=== PATIENT | female | born 1980 | race Caucasian/White ===

== ENCOUNTER 2016-04-04 13:11 | Emergency (ER) | payer OTHER ==
[2016-04-04] MEDS ORDERED: KETOROLAC 30 MG/ML VIAL (J1885) As Ordered ONE (15:53)
[2016-04-04] MEDS ORDERED: ONDANSETRON 4MG/2ML VIAL (J2405) As Ordered ONE (15:53)
[2016-04-04 16:22] LABS: BASO % 0.4 % (0.0-1.0); EOS # 0.1 K/mm3 (0.0-0.50); EOS % 1.8 % (0.0-3.0); LARGE UNSTAINED CELL # 0.1 K/mm3 (0.0-0.4); LARGE UNSTAINED CELL % 1.7 % (0.0-4.0); LYMPH % 32.8 % (24.0-44.0); MEAN CORPUSCULAR HEMOGLOBIN 27.9 pg (27.0-33.0); MEAN CORPUSCULAR HGB CONC 33.9 g/dl (32.0-36.5); MEAN CORPUSCULAR VOLUME 82.4 fl (80.0-96.0); MONO # 0.4 K/mm3 (0.0-0.8); MONO % 7.6 % (0.0-5.0); NEUTROPHILS # 3.2 K/mm3 (1.8-7.7); NEUTROPHILS % 55.7 % (36.0-66.0); PLATELET COUNT, AUTOMATED 283 k/mm3 (150-450); RED CELL DISTRIBUTION WIDTH 13.1 % (11.5-14.5); WHITE BLOOD COUNT 5.8 K/mm3 (4.0-10.0)
[2016-04-04 16:46] LABS: ALBUMIN 3.4 GM/DL (3.2-5.2); ALKALINE PHOSPHATASE 74 U/L (45-117); ALT/SGPT 16 U/L (12-78); AMYLASE 31 U/L (25-115); ANION GAP 11 MEQ/L (8-16); AST/SGOT 14 U/L (15-37); BILIRUBIN,DIRECT < 0.1 MG/DL (0.0-0.2); BILIRUBIN,TOTAL 0.2 MG/DL (0.2-1.0); BLOOD UREA NITROGEN 8 MG/DL (7-18); CALCIUM LEVEL 8.5 MG/DL (8.5-10.1); CARBON DIOXIDE LEVEL 24 MEQ/L (21-32); CHLORIDE LEVEL 105 MEQ/L (98-107); CREATININE FOR GFR 0.63 MG/DL (0.55-1.02); GLOMERULAR FILTRATION RATE > 60.0 (>60); GLUCOSE, FASTING 86 MG/DL (70-105); POTASSIUM SERUM 3.6 MEQ/L (3.5-5.1); SODIUM LEVEL 140 MEQ/L (136-145); TOTAL PROTEIN 6.8 GM/DL (6.4-8.2)
--- NOTE | 2016-04-04 16:59 | REP ---
Clinical: Right flank pain. Findings: Lung bases clear. Visualized heart and pericardium normal. Renal hypodensities suggest small cysts and 2 mm nephrolith in the left kidney lower pole. Small amount of layering milk of calcium in a left upper pole cyst is also identified. There is no evidence for perinephric stranding or hydroureteronephrosis bilaterally. Liver, spleen, pancreas, gallbladder, and bilateral adrenal glands are normal. The enteric system is without obstruction or acute inflammatory process. Pelvis demonstrates collapsed bladder, bulky myomatous appearance to the uterus and ovary a centimeter left ovarian cyst likely physiologic. No pelvic fluid or ascites. No free air. No adenopathy. Abdominal aorta without aneurysm. Musculoskeletal structures intact. Impression: 1. Kidneys suggest small bilateral cysts as well as 2 mm nonobstructing left renal calculus. 2. Myomatous changes to the uterus and 3 cm left ovarian cyst. 3. Sigmoid diverticula without acute diverticulitis. Signed by Jann Licona MD 04/04/2016 04:51 P
[2016-04-04] MEDS ORDERED: NITROFURANTOIN (MACROBID) 100 MG CAP As Ordered ONE (17:15)
[2016-04-04] MEDS ORDERED: TAMSULOSIN 0.4 MG CAP As Ordered ONE (17:16)
[2016-04-04] MEDS ORDERED: PHENAZOPYRIDINE 100 MG TAB As Ordered ONE (17:16)
--- NOTE | 2016-04-04 17:34 | EDDOCDS ---
Physician Documentation [facility] Name: Lizz Henao Age: 36 yrs Sex: Female : 1980 Arrival Date: 04/04/2016 Time: 13:11 Bed I3 / M3 Private MD: NO PRIMARY PHYSICIAN, . Disposition: 04/04/16 17:19 Discharged to Home/Self Care. Impression: Other ovarian cysts - 3 cm Left ovarian cyst, Calculus of kidney - Nonobstructing 2mm Left calculus, Diverticulosis of large intestine without perforation or abscess without bleeding - Sigmoid, Urinary tract infection, site not specified. - Condition is Stable. - Discharge Instructions: Diverticulosis, Kidney Stones, Ovarian Cyst, Urinary Tract Infection, [id number]. - Prescriptions for Pyridium 200 mg Oral Tablet - take 1 tablet by ORAL route every 8 hours for 3 days; 9 tablet. Macrobid 100 mg Oral Capsule - take 100 milligram by ORAL route every 12 hours for 10 days; 20 capsule. Flomax 0.4 mg Oral Capsule, Sust. Release 24 hr - take 1 capsule by ORAL route once daily 1/2 hour following the same meal each day; 30 capsule. ketorolac 10 mg Oral Tablet - take 1 tablet by ORAL route 3 times per day As needed MDD- 30mg. Up to 5 days total use.; 15 tablet. ZOFRAN ODT 4 mg - dissolve 1 tablet by ORAL route 4 times per day As needed do not chew, do not swallow whole; 10 tablet. - Medication Reconciliation, Local Pharmacy Hours, Referral List Call for Appointment form. - Follow up: [facility] ; When: 1 - 2 days; Reason: Recheck today's complaints, Continuance of care. Follow up: Maria T Clarke; When: 1 - 2 days; Reason: Further diagnostic work-up, Recheck today's complaints, Continuance of care. Follow up: Phill Fatima; When: Call to arrange an appointment; Reason: Further diagnostic work-up, Recheck today's complaints, Continuance of care. Follow up: Bita Rabago; When: Call to arrange an appointment; Reason: Further diagnostic work-up, Recheck today's complaints, Continuance of care. - Problem is new. - Symptoms have improved. Historical: - Allergies: no known allergies; - Home Meds: 1. none - PMHx: none; - PSHx: Appendectomy; ; Laparoscopy; - Social history: Smoking status: Patient states was never smoker of tobacco. No barriers to communication noted, The patient speaks fluent Wallisian, Speaks appropriately for age. - Family history: Not pertinent. - : The pt / caregiver states he / she is not on anticoagulants. Home medication list is obtained from the patient. 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 5 in. (165.10 cm) (R); Pain 10/10; 17:18 BP 124 / 77; Pulse 70; Resp 18; Temp 97.5(O); Pulse Ox 97% on R/A; Pain 8/10; nb2 13:12 Body Mass Index 32.12 (87.54 kg, 165.10 cm) lr2 MDM: 14:57 [facility] Payment Agreement was scanned into [employer] and attached to record. [id number] 15:49 NS 0.9% 1000 ml IV at bolus once ordered. ef1 15:49 Ondansetron 4 mg IVP once ordered. ef1 15:49 ketorolac 30 mg IVP once ordered. ef1 15:49 IV Saline Lock ordered. ef1 15:49 Undress patient appropriately for examination ordered. ef1 15:49 UCG by Nursing ordered. ef1 15:49 Financial registration complete. lg 15:49 Amylase Ordered. EDMS 15:49 Basic Metabolic Profile Ordered. EDMS 15:50 CBC with Diff Ordered. EDMS 15:50 Lipase Ordered. EDMS 15:50 Liver Profile Ordered. EDMS 15:50 Urinalysis Ordered. EDMS 15:50 Urine Culture Ordered. EDMS 15:50 CT ABD & PELVIS: No Contrast Ordered. EDMS 15:51 NOTHING BY MOUTH+DIET ordered. EDMS 17:09 CBC with Diff Reviewed. ef1 17:09 Liver Profile Reviewed. ef1 17:09 Urinalysis Reviewed. ef1 17:09 Amylase Reviewed. ef1 17:09 Basic Metabolic Profile Reviewed. ef1 17:09 Lipase Reviewed. ef1 17:14 Tamsulosin Extended Release 24 hour Capsule 0.4 mg PO once ordered. ef1 17:14 Phenazopyridine 200 mg PO once ordered. ef1 17:14 Nitrofurantoin 100 mg PO once ordered. ef1 Point of Care Testing: Urine : 16:00 hCG Reading: Negative; Control Reading: Positive; dsf Ranges: Administered Medications: 16:17 Drug: NS 0.9% 1000 ml [sodium chloride 0.9 % intravenous solution] Route: IV; Rate: mb9 bolus; Site: right antecubital; 17:31 Follow up: IV Status: Completed infusion; IV Intake: 1000ml ld5 16:17 Drug: Ondansetron 4 mg [ondansetron HCl 2 mg/mL intravenous solution (2 mL)] Route: mb9 IVP; Site: right antecubital; 17:31 Follow up: Response: Nausea is decreased ld5 16:17 Drug: ketorolac 30 mg [ketorolac 30 mg/mL (1 mL) injection solution (1 mL)] Route: IVP; mb9 Site: right antecubital; 17:31 Follow up: Response: Pain is decreased ld5 17:30 Drug: Nitrofurantoin 100 mg {Note: 1 - 100 mg capsule.} Route: PO; ld5 17:31 Drug: Tamsulosin 0.4 mg [tamsulosin 0.4 mg capsule (1 caps)] Route: PO; ld5 17:31 Drug: Phenazopyridine 200 mg [phenazopyridine 100 mg tablet (2 tabs)] Route: PO; ld5 Signatures: Dispatcher [employer] Thea Burns RN RN dls Ganter, LoriLee, Reg Reg lg Joan Godfrey, PA-Dara PA-C ef1 Omaira Gallegos RN RN ld5 Berenice Gaston RN RN dsf Marlen Bell, Reg Reg ks16 Buddy Thorne RN mb9 The chart was reviewed and I authenticate all verbal orders and agree with the evaluation and treatment provided.Attachments: 14:57 [facility] Payment Agreement [email or web address] MTDD
--- NOTE | 2016-04-04 17:34 | EDDOCDS ---
Nurse's Notes [facility] Name: Lizz Henao Age: 36 yrs Sex: Female : 1980 Arrival Date: 04/04/2016 Time: 13:11 Bed I3 / M3 Private MD: NO PRIMARY PHYSICIAN, . Diagnosis: Other ovarian cysts-3 cm Left ovarian cyst;Calculus of kidney-Nonobstructing 2mm Left calculus;Diverticulosis of large intestine without perforation or abscess without bleeding-Sigmoid;Urinary tract infection, site not specified Presentation: 04/04 13:14 Presenting complaint: Patient states: right lower back pain radiating down right leg dsf and right abdomen. pt also reports n/v and a cough. pt states she was seen at [facility] for same thing. pt was diagnosed with right renal cyst and cyst on right ovary. pt states it is not getting any better. pt was prescribed hydrocodone and it just made her sick to her stomach. Acute neurological deficits are not present. Mechanism of Injury: No Mechanism of Injury. Adult Sepsis Screening: The patient does not have new or worsening altered mentation. Patient's respiratory rate is less than 22. Systolic blood pressure is greater than 100. Patient has a qSOFA score of 0- Negative Sepsis Screen. Suicide/Homicide risk assessment- the patient denies having any suicidal and/or homicidal ideations and does not present with any other emotional, behavioral or mental health complaints. 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 Transition of care: patient was not received from another setting of care. 13:14 Acuity: PIERRE Level 3 dsf 13:14 Method Of Arrival: Walkin/Carried/Asstd dsf Triage Assessment: 13:16 General: Appears uncomfortable. dsf 13:16 Pain: Location: right lower back Pain currently is 10 out of 10 on a pain scale. Pain dsf radiates to right leg and right abdomen Quality of pain is described as sharp. Pt Declines HIV testing. Musculoskeletal: Reports pain in right low back. 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 none - PMHx: none; - PSHx: Appendectomy; ; Laparoscopy; - Social history: Smoking status: Patient states was never smoker of tobacco. No barriers to communication noted, The patient speaks fluent Frisian, Speaks appropriately for age. - Family history: Not pertinent. - : The pt / caregiver states he / she is not on anticoagulants. Home medication list is obtained from the patient. 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 Screenin:21 Screening information is obtained from the patient. Fall risk: No risks identified. dls Assistance ADL's: requires no assistance with activities of daily living. Abuse/DV Screen: The patient / caregiver reports he/she is: not in a situation that causes fear, pain or injury. Nutritional screening: No deficits noted. Advance Directives: Currently, there is no health care proxy. There is no active DNR order. There is no living will. There is no Power of Poultry Dresser. home support is adequate. Assessment: 16:20 General: Appears uncomfortable, unkempt, well nourished, well groomed, Behavior is dls cooperative. Neurological: No deficits noted. EENT: No deficits noted. Cardiovascular: No deficits noted. Respiratory: No deficits noted. GI: Abdomen is flat, non- distended Bowel sounds present X 4 quads. Abd is soft X 4 quads Reports. : No deficits noted. Derm: No deficits noted. Musculoskeletal: No deficits noted. 17:31 General: Appears in no apparent distress, Behavior is cooperative. Pain: Pain currently ld5 is 3 out of 10 on a pain scale. Neurological: Level of Consciousness is awake, alert. Respiratory: Airway is patent Respiratory effort is even, unlabored. GI: Denies nausea, vomiting. Vital Signs: 13:12 BP 102 / 77; Pulse 101; Resp 16; Temp 97.7(T); Pulse Ox 98% on R/A; Weight 87.54 kg lr2 (R); Height 5 ft. 5 in. (165.10 cm) (R); Pain 10/10; 17:18 BP 124 / 77; Pulse 70; Resp 18; Temp 97.5(O); Pulse Ox 97% on R/A; Pain 8/10; nb2 13:12 Body Mass Index 32.12 (87.54 kg, 165.10 cm) lr2 Vitals: 13:14 Log In Time: April 04, 2016 at 13:11. lr2 ED Course: 13:12 Patient visited by Omaira Breaux. lr2 13:12 Patient moved to Waiting lr2 13:13 NO PRIMARY PHYSICIAN, . is Private Physician. lr2 13:13 Patient moved to Pre RCE lr2 13:15 Triage Initiated dsf 14:24 Patient moved to Triage 3 ct3 14:57 [facility] Payment Agreement was scanned into [employer] and attached to record. ks16 15:40 Joan Godfrey PA-C is PHCP. ef1 15:41 Sherry Leavitt MD is Attending Physician. ef1 15:41 Patient visited by Joan Godfrey PA-C. ef1 15:50 Patient moved to I3 / M3 srm 15:59 Urinalysis Sent. dsf 16:00 Urine Culture Sent. dsf 16:11 Patient visited by Joan Godfrey PA-C. ef1 16:16 Amylase Sent. mb9 16:16 Basic Metabolic Profile Sent. mb9 16:16 CBC with Diff Sent. mb9 16:16 Lipase Sent. mb9 16:16 Liver Profile Sent. mb9 16:21 The patient / caregiver is instructed regarding the plan of care and ED course. dls Accompanied by Significant Other, Placed in gown. Bed in low position. Call light in reach. 16:21 Inserted peripheral IV: 20gauge IV in right antecubital area and blood collected. dls Patient tolerated the procedure well. 16:42 Patient visited by Joan Godfrey PA-C. ef1 17:09 Patient visited by Joan Godfrey PA-C. ef1 17:18 Patient visited by Yasmeen Millard. nb2 17:19 [facility] is Referral Physician. ef1 17:19 Maria T Clarke MD is Referral Physician. ef1 17:19 Phill Fatima MD is Referral Physician. ef1 17:19 Bita Rabago MD is Referral Physician. ef1 17:31 CT ABD & PELVIS: No Contrast Returned. EDMS 17:31 Discontinued lock intact, bleeding controlled, pressure dressing applied, No ld5 redness/swelling at site. No procedures done that require assistance. 17:33 Patient visited by Omaira Gallegos RN. ld5 Administered Medications: 16:17 Drug: NS 0.9% 1000 ml [sodium chloride 0.9 % intravenous solution] Route: IV; Rate: mb9 bolus; Site: right antecubital; 17:31 Follow up: IV Status: Completed infusion; IV Intake: 1000ml ld5 16:17 Drug: Ondansetron 4 mg [ondansetron HCl 2 mg/mL intravenous solution (2 mL)] Route: mb9 IVP; Site: right antecubital; 17:31 Follow up: Response: Nausea is decreased ld5 16:17 Drug: ketorolac 30 mg [ketorolac 30 mg/mL (1 mL) injection solution (1 mL)] Route: IVP; mb9 Site: right antecubital; 17:31 Follow up: Response: Pain is decreased ld5 17:30 Drug: Nitrofurantoin 100 mg {Note: 1 - 100 mg capsule.} Route: PO; ld5 17:31 Drug: Tamsulosin 0.4 mg [tamsulosin 0.4 mg capsule (1 caps)] Route: PO; ld5 17:31 Drug: Phenazopyridine 200 mg [phenazopyridine 100 mg tablet (2 tabs)] Route: PO; ld5 Point of Care Testing: Urine : 16:00 hCG Reading: Negative; Control Reading: Positive; dsf Ranges: Intake: 17:31 IV: 1000.00ml; Total: 1000.00ml. ld5 Order Results: Lab Order: Amylase; SPEC'M 04/04/16 16:14 Test: AMYLASE; Value: 31; Range: 25-115; Units: U/L; Status: F Lab Order: Basic Metabolic Profile; SPEC'M 04/04/16 16:14 Test: GLUCOSE, FASTING; Value: 86; Range: 70-105; Units: MG/DL; Status: F Test: BLOOD UREA NITROGEN; Value: 8; Range: 7-18; Units: MG/DL; Status: F Test: CREATININE FOR GFR; Value: 0.63; Range: 0.55-1.02; Units: MG/DL; Status: F Test: GLOMERULAR FILTRATION RATE; Value: > 60.0; Range: >60; Status: F Test: SODIUM LEVEL; Value: 140; Range: 136-145; Units: MEQ/L; Status: F Test: POTASSIUM SERUM; Value: 3.6; Range: 3.5-5.1; Units: MEQ/L; Status: F Test: CHLORIDE LEVEL; Value: 105; Range: 98-107; Units: MEQ/L; Status: F Test: CARBON DIOXIDE LEVEL; Value: 24; Range: 21-32; Units: MEQ/L; Status: F Test: ANION GAP; Value: 11; Range: 8-16; Units: MEQ/L; Status: F Test: CALCIUM LEVEL; Value: 8.5; Range: 8.5-10.1; Units: MG/DL; Status: F Test Note: ; Units are mL/min/1.73 m2 Chronic Kidney Disease Staging per NKF: Stage I & II GFR >=60 Normal to Mildly Decreased Stage III GFR 30-59 Moderately Decreased Stage IV GFR 15-29 Severely Decreased Stage V GFR <15 Very Little GFR Left ESRD GFR <15 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 Lab Order: CBC with Diff; SPEC'M 04/04/16 16:14 Test: WHITE BLOOD COUNT; Value: 5.8; Range: 4.0-10.0; Units: K/mm3; Status: F Test: RED BLOOD COUNT; Value: 5.07; Range: 4.00-5.40; Units: M/mm3; Status: F Test: HEMOGLOBIN; Value: 14.2; Range: 12.0-16.0; Units: g/dl; Status: F Test: HEMATOCRIT; Value: 41.8; Range: 36.0-47.0; Units: %; Status: F Test: MEAN CORPUSCULAR VOLUME; Value: 82.4; Range: 80.0-96.0; Units: fl; Status: F Test: MEAN CORPUSCULAR HEMOGLOBIN; Value: 27.9; Range: 27.0-33.0; Units: pg; Status: F Test: MEAN CORPUSCULAR HGB CONC; Value: 33.9; Range: 32.0-36.5; Units: g/dl; Status: F Test: RED CELL DISTRIBUTION WIDTH; Value: 13.1; Range: 11.5-14.5; Units: %; Status: F Test: PLATELET COUNT, AUTOMATED; Value: 283; Range: 150-450; Units: k/mm3; Status: F Test: NEUTROPHILS %; Value: 55.7; Range: 36.0-66.0; Units: %; Status: F Test: LYMPH %; Value: 32.8; Range: 24.0-44.0; Units: %; Status: F Test: MONO %; Value: 7.6; Range: 0.0-5.0; Abnormal: Above high normal; Units: %; Status: F Test: EOS %; Value: 1.8; Range: 0.0-3.0; Units: %; Status: F Test: BASO %; Value: 0.4; Range: 0.0-1.0; Units: %; Status: F Test: LARGE UNSTAINED CELL %; Value: 1.7; Range: 0.0-4.0; Units: %; Status: F Test: NEUTROPHILS #; Value: 3.2; Range: 1.8-7.7; Units: K/mm3; Status: F Test: LYMPH #; Value: 2.0; Range: 1.5-4.5; Units: K/mm3; Status: F Test: MONO #; Value: 0.4; Range: 0.0-0.8; Units: K/mm3; Status: F Test: EOS #; Value: 0.1; Range: 0.0-0.50; Units: K/mm3; Status: F Test: BASO #; Value: 0.0; Range: 0.0-0.2; Units: K/mm3; Status: F Test: LARGE UNSTAINED CELL #; Value: 0.1; Range: 0.0-0.4; Units: K/mm3; Status: F Lab Order: Lipase; [facility]' 04/04/16 16:14 Test: LIPASE; Value: 93; Range: 73-393; Units: U/L; Status: F Lab Order: Liver Profile; [facility]' 04/04/16 16:14 Test: AST/SGOT; Value: 14; Range: 15-37; Abnormal: Below low normal; Units: U/L; Status: F Test: ALT/SGPT; Value: 16; Range: 12-78; Units: U/L; Status: F Test: ALKALINE PHOSPHATASE; Value: 74; Range: 45-117; Units: U/L; Status: F Test: BILIRUBIN,TOTAL; Value: 0.2; Range: 0.2-1.0; Units: MG/DL; Status: F Test: BILIRUBIN,DIRECT; Value: < 0.1; Range: 0.0-0.2; Units: MG/DL; Status: F Test: TOTAL PROTEIN; Value: 6.8; Range: 6.4-8.2; Units: GM/DL; Status: F Test: ALBUMIN; Value: 3.4; Range: 3.2-5.2; Units: GM/DL; Status: F Test: ALBUMIN/GLOBULIN RATIO; Value: 1.00; Range: 1.00-1.93; Status: F Lab Order: Urinalysis; SPEC'M 04/04/16 15:53 Test: APPEARANCE, URINE; Value: CLOUDY; Range: CLEAR; Abnormal: Above high normal; Status: F Test: COLOR, URINE; Value: RICKY; Range: YELLOW; Status: F Test: PH,URINE; Value: 5.0; Range: 5.0-9.0; Units: UNITS; Status: F Test: SPECIFIC GRAVITY URINE AUTO; Value: 1.024; Range: 1.002-1.035; Status: F Test: PROTEIN, URINE AUTO; Value: 1+; Range: NEGATIVE; Abnormal: Above high normal; Units: mg/dL; Status: F Test: GLUCOSE, URINE (UA) AUTO; Value: NEGATIVE; Range: NEGATIVE; Units: mg/dL; Status: F Test: KETONE, URINE AUTO; Value: 2+; Range: NEGATIVE; Abnormal: Above high normal; Units: mg/dL; Status: F Test: UROBILINOGEN, URINE AUTO; Value: 0.2; Range: 0.0-2.0; Units: mg/dL; Status: F Test: BILIRUBIN, URINE AUTO; Value: NEGATIVE; Range: NEGATIVE; Status: F Test: NITRITE, URINE AUTO; Value: NEGATIVE; Range: NEGATIVE; Status: F Test: LEUKOCYTE ESTERASE, URINE AUTO; Value: 2+; Range: NEGATIVE; Abnormal: Above high normal; Status: F Test: BLOOD, URINE BLOOD; Value: NEGATIVE; Range: NEGATIVE; Status: F Test: WBC, URINE AUTO; Value: 39; Range: 0-3; Abnormal: Above high normal; Units: /HPF; Status: F Test: RBC, URINE AUTO; Value: 6; Range: 0-3; Abnormal: Above high normal; Units: /HPF; Status: F Test: BACTERIA, URINE AUTO; Value: 1+; Range: NEGATIVE; Abnormal: Above high normal; Status: F Test: SQUAMOUS EPITHELIAL CELL UR AU; Value: 17; Range: 0-6; Units: /HPF; Status: F Test: MUCUS, URINE; Value: SMALL; Range: NEGATIVE; Status: F Test: HYALINE CAST, URINE AUTO; Value: 0; Range: 0-1; Units: /LPF; Status: F Radiology Order: CT ABD & PELVIS: No Contrast Test: CT ABD & PELVIS: No Contrast REASON FOR EXAMINATION: Renal colic; Clinical: Right flank pain.; ; Findings:; Lung bases clear. Visualized heart and pericardium normal.; ; Renal hypodensities suggest small cysts and 2 mm nephrolith in the left kidney; lower pole. Small amount of layering milk of calcium in a left upper pole cyst; is also identified. There is no evidence for perinephric stranding or; hydroureteronephrosis bilaterally.; ; Liver, spleen, pancreas, gallbladder, and bilateral adrenal glands are normal.; The enteric system is without obstruction or acute inflammatory process.; ; Pelvis demonstrates collapsed bladder, bulky myomatous appearance to the uterus; and ovary a centimeter left ovarian cyst likely physiologic. No pelvic fluid or; ascites. No free air. No adenopathy. Abdominal aorta without aneurysm.; Musculoskeletal structures intact.; ; Impression:; 1. Kidneys suggest small bilateral cysts as well as 2 mm nonobstructing left; renal calculus.; 2. Myomatous changes to the uterus and 3 cm left ovarian cyst.; 3. Sigmoid diverticula without acute diverticulitis.; ; ; Signed by; Jann Licona MD 04/04/2016 04:51 P; Outcome: 17:19 Discharge ordered by Provider. ef1 17:31 Discharge Assessment: Patient awake, alert and oriented x 3. No cognitive and/or ld5 functional deficits noted. Patient verbalized understanding of disposition instructions. patient administered narcotics -. 17:32 The following High Risk Discharge criteria are identified: None. Discharged to home ld5 ambulatory, with significant other. Condition: stable. Discharge instructions given to patient, significant other, Instructed on discharge instructions, follow up and referral plans. medication usage, Demonstrated understanding of instructions, medications, Pt was receptive of discharge instructions/ teaching. Prescriptions given X 5. CT Study completed. Property :Personal belongings accompany Pt. 17:33 Patient left the ED. ld5 Signatures: Dispatcher [facility] EDAZ Helena Galarza RN RN donny Pruett Thea, RN RN dls Epifanio, Joan, PA-C PA-C ef1 Omaira Gallegos,TIFFANY RN ld5 Mercedes, Ariela, REGIONAL MANAGER REGIONAL MANAGER ct3 Berenice Gaston RN RN dsBuddy Vo RN RN mb9 Marlen Bell, Reg Reg ks16 Yasmeen Millard nb2 Omaira Breaux lr2 Corrections: (The following items were deleted from the chart) 13:17 13:14 Presenting complaint: Patient states: right lower back pain radiating down right dsf leg and right abdomen. pt also reports n/v and a cough dsf MTDD
--- NOTE | 2016-04-06 18:33 | EDDOCDS ---
Physician Documentation [facility] Name: Lizz Henao Age: 36 yrs Sex: Female : 1980 Arrival Date: 04/04/2016 Time: 13:11 Bed I3 / M3 Private MD: NO PRIMARY PHYSICIAN, . Disposition: 04/04/16 17:19 Discharged to Home/Self Care. Impression: Other ovarian cysts - 3 cm Left ovarian cyst, Calculus of kidney - Nonobstructing 2mm Left calculus, Diverticulosis of large intestine without perforation or abscess without bleeding - Sigmoid, Urinary tract infection, site not specified. - Condition is Stable. - Discharge Instructions: Diverticulosis, Kidney Stones, Ovarian Cyst, Urinary Tract Infection, [id number]. - Prescriptions for Pyridium 200 mg Oral Tablet - take 1 tablet by ORAL route every 8 hours for 3 days; 9 tablet. Macrobid 100 mg Oral Capsule - take 100 milligram by ORAL route every 12 hours for 10 days; 20 capsule. Flomax 0.4 mg Oral Capsule, Sust. Release 24 hr - take 1 capsule by ORAL route once daily 1/2 hour following the same meal each day; 30 capsule. ketorolac 10 mg Oral Tablet - take 1 tablet by ORAL route 3 times per day As needed MDD- 30mg. Up to 5 days total use.; 15 tablet. ZOFRAN ODT 4 mg - dissolve 1 tablet by ORAL route 4 times per day As needed do not chew, do not swallow whole; 10 tablet. - Medication Reconciliation, Local Pharmacy Hours, Referral List Call for Appointment form. - Follow up: [facility] ; When: 1 - 2 days; Reason: Recheck today's complaints, Continuance of care. Follow up: Maria T Clarke; When: 1 - 2 days; Reason: Further diagnostic work-up, Recheck today's complaints, Continuance of care. Follow up: Phill Fatima; When: Call to arrange an appointment; Reason: Further diagnostic work-up, Recheck today's complaints, Continuance of care. Follow up: Bita Rabago; When: Call to arrange an appointment; Reason: Further diagnostic work-up, Recheck today's complaints, Continuance of care. - Problem is new. - Symptoms have improved. Historical: - Allergies: no known allergies; - Home Meds: 1. none - PMHx: none; - PSHx: Appendectomy; ; Laparoscopy; - Social history: Smoking status: Patient states was never smoker of tobacco. No barriers to communication noted, The patient speaks fluent Kiswahili, Speaks appropriately for age. - Family history: Not pertinent. - : The pt / caregiver states he / she is not on anticoagulants. Home medication list is obtained from the patient. 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 5 in. (165.10 cm) (R); Pain 10/10; 17:18 BP 124 / 77; Pulse 70; Resp 18; Temp 97.5(O); Pulse Ox 97% on R/A; Pain 8/10; nb2 13:12 Body Mass Index 32.12 (87.54 kg, 165.10 cm) lr2 MDM: 14:57 [facility] Payment Agreement was scanned into [employer] and attached to record. [email or web address] 15:49 NS 0.9% 1000 ml IV at bolus once ordered. ef1 15:49 Ondansetron 4 mg IVP once ordered. ef1 15:49 ketorolac 30 mg IVP once ordered. ef1 15:49 IV Saline Lock ordered. ef1 15:49 Undress patient appropriately for examination ordered. ef1 15:49 UCG by Nursing ordered. ef1 15:49 Financial registration complete. lg 15:49 Amylase Ordered. EDMS 15:49 Basic Metabolic Profile Ordered. EDMS 15:50 CBC with Diff Ordered. EDMS 15:50 Lipase Ordered. EDMS 15:50 Liver Profile Ordered. EDMS 15:50 Urinalysis Ordered. EDMS 15:50 Urine Culture Ordered. EDMS 15:50 CT ABD & PELVIS: No Contrast Ordered. EDMS 15:51 NOTHING BY MOUTH+DIET ordered. EDMS 17:09 CBC with Diff Reviewed. ef1 17:09 Liver Profile Reviewed. ef1 17:09 Urinalysis Reviewed. ef1 17:09 Amylase Reviewed. ef1 17:09 Basic Metabolic Profile Reviewed. ef1 17:09 Lipase Reviewed. ef1 17:14 Tamsulosin Extended Release 24 hour Capsule 0.4 mg PO once ordered. ef1 17:14 Phenazopyridine 200 mg PO once ordered. ef1 17:14 Nitrofurantoin 100 mg PO once ordered. ef1 20:28 T-Sheet-- Draft Copy was scanned into [employer] and attached to record. klr 04/06 10:17 Disposition: radiology report faxed to Belinda and Dr. Rabago. sd1 11:26 Radiology Report was scanned into [employer] and attached to record. Point of Care Testing: Urine : 04/04 16:00 hCG Reading: Negative; Control Reading: Positive; dsf Ranges: Administered Medications: 16:17 Drug: NS 0.9% 1000 ml [sodium chloride 0.9 % intravenous solution] Route: IV; Rate: mb9 bolus; Site: right antecubital; 17:31 Follow up: IV Status: Completed infusion; IV Intake: 1000ml ld5 16:17 Drug: Ondansetron 4 mg [ondansetron HCl 2 mg/mL intravenous solution (2 mL)] Route: mb9 IVP; Site: right antecubital; 17:31 Follow up: Response: Nausea is decreased ld5 16:17 Drug: ketorolac 30 mg [ketorolac 30 mg/mL (1 mL) injection solution (1 mL)] Route: IVP; mb9 Site: right antecubital; 17:31 Follow up: Response: Pain is decreased ld5 17:30 Drug: Nitrofurantoin 100 mg {Note: 1 - 100 mg capsule.} Route: PO; ld5 17:31 Drug: Tamsulosin 0.4 mg [tamsulosin 0.4 mg capsule (1 caps)] Route: PO; ld5 17:31 Drug: Phenazopyridine 200 mg [phenazopyridine 100 mg tablet (2 tabs)] Route: PO; ld5 Signatures: Dispatcher [employer] EDShannon Cortez MD MD sd1 Thea Pruett RN RN Carey Mancuso, Reg Reg lg Joan Godfrey, PA-C PA-C ef1 Omaira Gallegos RN RN ld5 Berenice Gaston RN RN dsf Marlen Bell, Reg Reg ksRosalinda Peres Michael RN mb9 The chart was reviewed and I authenticate all verbal orders and agree with the evaluation and treatment provided.Attachments: 14:57 [facility] Payment Agreement [email or web address] 20:28 T-Sheet-- Draft Copy purvi Chart Complete MTDD
--- NOTE | 2016-04-06 18:33 | EDDOCDS ---
Physician Documentation [facility] Name: Lizz Henao Age: 36 yrs Sex: Female : 1980 Arrival Date: 04/04/2016 Time: 13:11 Bed I3 / M3 Private MD: NO PRIMARY PHYSICIAN, . Disposition: 04/04/16 17:19 Discharged to Home/Self Care. Impression: Other ovarian cysts - 3 cm Left ovarian cyst, Calculus of kidney - Nonobstructing 2mm Left calculus, Diverticulosis of large intestine without perforation or abscess without bleeding - Sigmoid, Urinary tract infection, site not specified. - Condition is Stable. - Discharge Instructions: Diverticulosis, Kidney Stones, Ovarian Cyst, Urinary Tract Infection, [id number]. - Prescriptions for Pyridium 200 mg Oral Tablet - take 1 tablet by ORAL route every 8 hours for 3 days; 9 tablet. Macrobid 100 mg Oral Capsule - take 100 milligram by ORAL route every 12 hours for 10 days; 20 capsule. Flomax 0.4 mg Oral Capsule, Sust. Release 24 hr - take 1 capsule by ORAL route once daily 1/2 hour following the same meal each day; 30 capsule. ketorolac 10 mg Oral Tablet - take 1 tablet by ORAL route 3 times per day As needed MDD- 30mg. Up to 5 days total use.; 15 tablet. ZOFRAN ODT 4 mg - dissolve 1 tablet by ORAL route 4 times per day As needed do not chew, do not swallow whole; 10 tablet. - Medication Reconciliation, Local Pharmacy Hours, Referral List Call for Appointment form. - Follow up: [facility] ; When: 1 - 2 days; Reason: Recheck today's complaints, Continuance of care. Follow up: Maria T Clarke; When: 1 - 2 days; Reason: Further diagnostic work-up, Recheck today's complaints, Continuance of care. Follow up: Phill Fatima; When: Call to arrange an appointment; Reason: Further diagnostic work-up, Recheck today's complaints, Continuance of care. Follow up: Bita Rabago; When: Call to arrange an appointment; Reason: Further diagnostic work-up, Recheck today's complaints, Continuance of care. - Problem is new. - Symptoms have improved. Historical: - Allergies: no known allergies; - Home Meds: 1. none - PMHx: none; - PSHx: Appendectomy; ; Laparoscopy; - Social history: Smoking status: Patient states was never smoker of tobacco. No barriers to communication noted, The patient speaks fluent Chinese, Speaks appropriately for age. - Family history: Not pertinent. - : The pt / caregiver states he / she is not on anticoagulants. Home medication list is obtained from the patient. 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 5 in. (165.10 cm) (R); Pain 10/10; 17:18 BP 124 / 77; Pulse 70; Resp 18; Temp 97.5(O); Pulse Ox 97% on R/A; Pain 8/10; nb2 13:12 Body Mass Index 32.12 (87.54 kg, 165.10 cm) lr2 MDM: 14:57 [facility] Payment Agreement was scanned into [employer] and attached to record. [email or web address] 15:49 NS 0.9% 1000 ml IV at bolus once ordered. ef1 15:49 Ondansetron 4 mg IVP once ordered. ef1 15:49 ketorolac 30 mg IVP once ordered. ef1 15:49 IV Saline Lock ordered. ef1 15:49 Undress patient appropriately for examination ordered. ef1 15:49 UCG by Nursing ordered. ef1 15:49 Financial registration complete. lg 15:49 Amylase Ordered. EDMS 15:49 Basic Metabolic Profile Ordered. EDMS 15:50 CBC with Diff Ordered. EDMS 15:50 Lipase Ordered. EDMS 15:50 Liver Profile Ordered. EDMS 15:50 Urinalysis Ordered. EDMS 15:50 Urine Culture Ordered. EDMS 15:50 CT ABD & PELVIS: No Contrast Ordered. EDMS 15:51 NOTHING BY MOUTH+DIET ordered. EDMS 17:09 CBC with Diff Reviewed. ef1 17:09 Liver Profile Reviewed. ef1 17:09 Urinalysis Reviewed. ef1 17:09 Amylase Reviewed. ef1 17:09 Basic Metabolic Profile Reviewed. ef1 17:09 Lipase Reviewed. ef1 17:14 Tamsulosin Extended Release 24 hour Capsule 0.4 mg PO once ordered. ef1 17:14 Phenazopyridine 200 mg PO once ordered. ef1 17:14 Nitrofurantoin 100 mg PO once ordered. ef1 20:28 T-Sheet-- Draft Copy was scanned into [employer] and attached to record. klr 04/06 10:17 Disposition: radiology report faxed to Belinda and Dr. Rabago. sd1 11:26 Radiology Report was scanned into [employer] and attached to record. Point of Care Testing: Urine : 04/04 16:00 hCG Reading: Negative; Control Reading: Positive; dsf Ranges: Administered Medications: 16:17 Drug: NS 0.9% 1000 ml [sodium chloride 0.9 % intravenous solution] Route: IV; Rate: mb9 bolus; Site: right antecubital; 17:31 Follow up: IV Status: Completed infusion; IV Intake: 1000ml ld5 16:17 Drug: Ondansetron 4 mg [ondansetron HCl 2 mg/mL intravenous solution (2 mL)] Route: mb9 IVP; Site: right antecubital; 17:31 Follow up: Response: Nausea is decreased ld5 16:17 Drug: ketorolac 30 mg [ketorolac 30 mg/mL (1 mL) injection solution (1 mL)] Route: IVP; mb9 Site: right antecubital; 17:31 Follow up: Response: Pain is decreased ld5 17:30 Drug: Nitrofurantoin 100 mg {Note: 1 - 100 mg capsule.} Route: PO; ld5 17:31 Drug: Tamsulosin 0.4 mg [tamsulosin 0.4 mg capsule (1 caps)] Route: PO; ld5 17:31 Drug: Phenazopyridine 200 mg [phenazopyridine 100 mg tablet (2 tabs)] Route: PO; ld5 Signatures: Dispatcher [employer] EDShannon Cortez MD MD sd1 Thea Pruett RN RN Carey Mancuso, Reg Reg lg Joan Godfrey, PA-C PA-C ef1 Omaira Gallegos RN RN ld5 Berenice Gaston RN RN dsf Marlen Bell, Reg Reg ksRosalinda Peres Michael RN mb9 The chart was reviewed and I authenticate all verbal orders and agree with the evaluation and treatment provided.Attachments: 14:57 [facility] Payment Agreement [email or web address] 20:28 T-Sheet-- Draft Copy purvi Chart Complete MTDD
--- NOTE | 2016-04-06 18:33 | EDDOCDS ---
Nurse's Notes [facility] Name: Lizz Henao Age: 36 yrs Sex: Female : 1980 Arrival Date: 04/04/2016 Time: 13:11 Bed I3 / M3 Private MD: NO PRIMARY PHYSICIAN, . Diagnosis: Other ovarian cysts-3 cm Left ovarian cyst;Calculus of kidney-Nonobstructing 2mm Left calculus;Diverticulosis of large intestine without perforation or abscess without bleeding-Sigmoid;Urinary tract infection, site not specified Presentation: 04/04 13:14 Presenting complaint: Patient states: right lower back pain radiating down right leg dsf and right abdomen. pt also reports n/v and a cough. pt states she was seen at [facility] for same thing. pt was diagnosed with right renal cyst and cyst on right ovary. pt states it is not getting any better. pt was prescribed hydrocodone and it just made her sick to her stomach. Acute neurological deficits are not present. Mechanism of Injury: No Mechanism of Injury. Adult Sepsis Screening: The patient does not have new or worsening altered mentation. Patient's respiratory rate is less than 22. Systolic blood pressure is greater than 100. Patient has a qSOFA score of 0- Negative Sepsis Screen. Suicide/Homicide risk assessment- the patient denies having any suicidal and/or homicidal ideations and does not present with any other emotional, behavioral or mental health complaints. 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 Transition of care: patient was not received from another setting of care. 13:14 Acuity: PIERRE Level 3 dsf 13:14 Method Of Arrival: Walkin/Carried/Asstd dsf Triage Assessment: 13:16 General: Appears uncomfortable. dsf 13:16 Pain: Location: right lower back Pain currently is 10 out of 10 on a pain scale. Pain dsf radiates to right leg and right abdomen Quality of pain is described as sharp. Pt Declines HIV testing. Musculoskeletal: Reports pain in right low back. 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 none - PMHx: none; - PSHx: Appendectomy; ; Laparoscopy; - Social history: Smoking status: Patient states was never smoker of tobacco. No barriers to communication noted, The patient speaks fluent Lithuanian, Speaks appropriately for age. - Family history: Not pertinent. - : The pt / caregiver states he / she is not on anticoagulants. Home medication list is obtained from the patient. 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 Screenin:21 Screening information is obtained from the patient. Fall risk: No risks identified. dls Assistance ADL's: requires no assistance with activities of daily living. Abuse/DV Screen: The patient / caregiver reports he/she is: not in a situation that causes fear, pain or injury. Nutritional screening: No deficits noted. Advance Directives: Currently, there is no health care proxy. There is no active DNR order. There is no living will. There is no Power of Baseball Club Manager. home support is adequate. Assessment: 16:20 General: Appears uncomfortable, unkempt, well nourished, well groomed, Behavior is dls cooperative. Neurological: No deficits noted. EENT: No deficits noted. Cardiovascular: No deficits noted. Respiratory: No deficits noted. GI: Abdomen is flat, non- distended Bowel sounds present X 4 quads. Abd is soft X 4 quads Reports. : No deficits noted. Derm: No deficits noted. Musculoskeletal: No deficits noted. 17:31 General: Appears in no apparent distress, Behavior is cooperative. Pain: Pain currently ld5 is 3 out of 10 on a pain scale. Neurological: Level of Consciousness is awake, alert. Respiratory: Airway is patent Respiratory effort is even, unlabored. GI: Denies nausea, vomiting. Vital Signs: 13:12 BP 102 / 77; Pulse 101; Resp 16; Temp 97.7(T); Pulse Ox 98% on R/A; Weight 87.54 kg lr2 (R); Height 5 ft. 5 in. (165.10 cm) (R); Pain 10/10; 17:18 BP 124 / 77; Pulse 70; Resp 18; Temp 97.5(O); Pulse Ox 97% on R/A; Pain 8/10; nb2 13:12 Body Mass Index 32.12 (87.54 kg, 165.10 cm) lr2 Vitals: 13:14 Log In Time: April 04, 2016 at 13:11. lr2 ED Course: 13:12 Patient visited by Omaira Breaux. lr2 13:12 Patient moved to Waiting lr2 13:13 NO PRIMARY PHYSICIAN, . is Private Physician. lr2 13:13 Patient moved to Pre RCE lr2 13:15 Triage Initiated dsf 14:24 Patient moved to Triage 3 ct3 14:57 COUNT INCLUDES THE [facility] Payment Agreement was scanned into [employer] and attached to record. ks16 15:40 Joan Godfrey PA-C is PHCP. ef1 15:41 Sherry Leavitt MD is Attending Physician. ef1 15:41 Patient visited by Joan Godfrey PA-C. ef1 15:50 Patient moved to I3 / M3 srm 15:59 Urinalysis Sent. dsf 16:00 Urine Culture Sent. dsf 16:11 Patient visited by Joan Godfrey PA-C. ef1 16:16 Amylase Sent. mb9 16:16 Basic Metabolic Profile Sent. mb9 16:16 CBC with Diff Sent. mb9 16:16 Lipase Sent. mb9 16:16 Liver Profile Sent. mb9 16:21 The patient / caregiver is instructed regarding the plan of care and ED course. dls Accompanied by Significant Other, Placed in gown. Bed in low position. Call light in reach. 16:21 Inserted peripheral IV: 20gauge IV in right antecubital area and blood collected. dls Patient tolerated the procedure well. 16:42 Patient visited by Joan Godfrey PA-C. ef1 17:09 Patient visited by Joan Godfrey PA-C. ef1 17:18 Patient visited by Yasmeen Millard. nb2 17:19 [facility] is Referral Physician. ef1 17:19 Maria T Clarke MD is Referral Physician. ef1 17:19 Phill Fatima MD is Referral Physician. ef1 17:19 Bita Rabago MD is Referral Physician. ef1 17:31 CT ABD & PELVIS: No Contrast Returned. EDMS 17:31 Discontinued lock intact, bleeding controlled, pressure dressing applied, No ld5 redness/swelling at site. No procedures done that require assistance. 17:33 Patient visited by Omaira Gallegos RN. ld5 20:28 T-Sheet-- Draft Copy was scanned into [employer] and attached to record. klr 04/06 11:26 Radiology Report was scanned into [employer] and attached to record. lg Administered Medications: 04/04 16:17 Drug: NS 0.9% 1000 ml [sodium chloride 0.9 % intravenous solution] Route: IV; Rate: mb9 bolus; Site: right antecubital; 17:31 Follow up: IV Status: Completed infusion; IV Intake: 1000ml ld5 16:17 Drug: Ondansetron 4 mg [ondansetron HCl 2 mg/mL intravenous solution (2 mL)] Route: mb9 IVP; Site: right antecubital; 17:31 Follow up: Response: Nausea is decreased ld5 16:17 Drug: ketorolac 30 mg [ketorolac 30 mg/mL (1 mL) injection solution (1 mL)] Route: IVP; mb9 Site: right antecubital; 17:31 Follow up: Response: Pain is decreased ld5 17:30 Drug: Nitrofurantoin 100 mg {Note: 1 - 100 mg capsule.} Route: PO; ld5 17:31 Drug: Tamsulosin 0.4 mg [tamsulosin 0.4 mg capsule (1 caps)] Route: PO; ld5 17:31 Drug: Phenazopyridine 200 mg [phenazopyridine 100 mg tablet (2 tabs)] Route: PO; ld5 Point of Care Testing: Urine : 16:00 hCG Reading: Negative; Control Reading: Positive; dsf Ranges: Intake: 17:31 IV: 1000.00ml; Total: 1000.00ml. ld5 Order Results: Lab Order: Amylase; SPEC'M 04/04/16 16:14 Test: AMYLASE; Value: 31; Range: 25-115; Units: U/L; Status: F Lab Order: Basic Metabolic Profile; SPEC'M 04/04/16 16:14 Test: GLUCOSE, FASTING; Value: 86; Range: 70-105; Units: MG/DL; Status: F Test: BLOOD UREA NITROGEN; Value: 8; Range: 7-18; Units: MG/DL; Status: F Test: CREATININE FOR GFR; Value: 0.63; Range: 0.55-1.02; Units: MG/DL; Status: F Test: GLOMERULAR FILTRATION RATE; Value: > 60.0; Range: >60; Status: F Test: SODIUM LEVEL; Value: 140; Range: 136-145; Units: MEQ/L; Status: F Test: POTASSIUM SERUM; Value: 3.6; Range: 3.5-5.1; Units: MEQ/L; Status: F Test: CHLORIDE LEVEL; Value: 105; Range: 98-107; Units: MEQ/L; Status: F Test: CARBON DIOXIDE LEVEL; Value: 24; Range: 21-32; Units: MEQ/L; Status: F Test: ANION GAP; Value: 11; Range: 8-16; Units: MEQ/L; Status: F Test: CALCIUM LEVEL; Value: 8.5; Range: 8.5-10.1; Units: MG/DL; Status: F Test Note: ; Units are mL/min/1.73 m2 Chronic Kidney Disease Staging per NKF: Stage I & II GFR >=60 Normal to Mildly Decreased Stage III GFR 30-59 Moderately Decreased Stage IV GFR 15-29 Severely Decreased Stage V GFR <15 Very Little GFR Left ESRD GFR <15 on HAND TUFTER Lab Order: CBC with Diff; SPEC'M 04/04/16 16:14 Test: WHITE BLOOD COUNT; Value: 5.8; Range: 4.0-10.0; Units: K/mm3; Status: F Test: RED BLOOD COUNT; Value: 5.07; Range: 4.00-5.40; Units: M/mm3; Status: F Test: HEMOGLOBIN; Value: 14.2; Range: 12.0-16.0; Units: g/dl; Status: F Test: HEMATOCRIT; Value: 41.8; Range: 36.0-47.0; Units: %; Status: F Test: MEAN CORPUSCULAR VOLUME; Value: 82.4; Range: 80.0-96.0; Units: fl; Status: F Test: MEAN CORPUSCULAR HEMOGLOBIN; Value: 27.9; Range: 27.0-33.0; Units: pg; Status: F Test: MEAN CORPUSCULAR HGB CONC; Value: 33.9; Range: 32.0-36.5; Units: g/dl; Status: F Test: RED CELL DISTRIBUTION WIDTH; Value: 13.1; Range: 11.5-14.5; Units: %; Status: F Test: PLATELET COUNT, AUTOMATED; Value: 283; Range: 150-450; Units: k/mm3; Status: F Test: NEUTROPHILS %; Value: 55.7; Range: 36.0-66.0; Units: %; Status: F Test: LYMPH %; Value: 32.8; Range: 24.0-44.0; Units: %; Status: F Test: MONO %; Value: 7.6; Range: 0.0-5.0; Abnormal: Above high normal; Units: %; Status: F Test: EOS %; Value: 1.8; Range: 0.0-3.0; Units: %; Status: F Test: BASO %; Value: 0.4; Range: 0.0-1.0; Units: %; Status: F Test: LARGE UNSTAINED CELL %; Value: 1.7; Range: 0.0-4.0; Units: %; Status: F Test: NEUTROPHILS #; Value: 3.2; Range: 1.8-7.7; Units: K/mm3; Status: F Test: LYMPH #; Value: 2.0; Range: 1.5-4.5; Units: K/mm3; Status: F Test: MONO #; Value: 0.4; Range: 0.0-0.8; Units: K/mm3; Status: F Test: EOS #; Value: 0.1; Range: 0.0-0.50; Units: K/mm3; Status: F Test: BASO #; Value: 0.0; Range: 0.0-0.2; Units: K/mm3; Status: F Test: LARGE UNSTAINED CELL #; Value: 0.1; Range: 0.0-0.4; Units: K/mm3; Status: F Lab Order: Lipase; SPEC'M 04/04/16 16:14 Test: LIPASE; Value: 93; Range: 73-393; Units: U/L; Status: F Lab Order: Liver Profile; SPEC'M 04/04/16 16:14 Test: AST/SGOT; Value: 14; Range: 15-37; Abnormal: Below low normal; Units: U/L; Status: F Test: ALT/SGPT; Value: 16; Range: 12-78; Units: U/L; Status: F Test: ALKALINE PHOSPHATASE; Value: 74; Range: 45-117; Units: U/L; Status: F Test: BILIRUBIN,TOTAL; Value: 0.2; Range: 0.2-1.0; Units: MG/DL; Status: F Test: BILIRUBIN,DIRECT; Value: < 0.1; Range: 0.0-0.2; Units: MG/DL; Status: F Test: TOTAL PROTEIN; Value: 6.8; Range: 6.4-8.2; Units: GM/DL; Status: F Test: ALBUMIN; Value: 3.4; Range: 3.2-5.2; Units: GM/DL; Status: F Test: ALBUMIN/GLOBULIN RATIO; Value: 1.00; Range: 1.00-1.93; Status: F Lab Order: Urinalysis; SPEC'M 04/04/16 15:53 Test: APPEARANCE, URINE; Value: CLOUDY; Range: CLEAR; Abnormal: Above high normal; Status: F Test: COLOR, URINE; Value: RICKY; Range: YELLOW; Status: F Test: PH,URINE; Value: 5.0; Range: 5.0-9.0; Units: UNITS; Status: F Test: SPECIFIC GRAVITY URINE AUTO; Value: 1.024; Range: 1.002-1.035; Status: F Test: PROTEIN, URINE AUTO; Value: 1+; Range: NEGATIVE; Abnormal: Above high normal; Units: mg/dL; Status: F Test: GLUCOSE, URINE (UA) AUTO; Value: NEGATIVE; Range: NEGATIVE; Units: mg/dL; Status: F Test: KETONE, URINE AUTO; Value: 2+; Range: NEGATIVE; Abnormal: Above high normal; Units: mg/dL; Status: F Test: UROBILINOGEN, URINE AUTO; Value: 0.2; Range: 0.0-2.0; Units: mg/dL; Status: F Test: BILIRUBIN, URINE AUTO; Value: NEGATIVE; Range: NEGATIVE; Status: F Test: NITRITE, URINE AUTO; Value: NEGATIVE; Range: NEGATIVE; Status: F Test: LEUKOCYTE ESTERASE, URINE AUTO; Value: 2+; Range: NEGATIVE; Abnormal: Above high normal; Status: F Test: BLOOD, URINE BLOOD; Value: NEGATIVE; Range: NEGATIVE; Status: F Test: WBC, URINE AUTO; Value: 39; Range: 0-3; Abnormal: Above high normal; Units: /HPF; Status: F Test: RBC, URINE AUTO; Value: 6; Range: 0-3; Abnormal: Above high normal; Units: /HPF; Status: F Test: BACTERIA, URINE AUTO; Value: 1+; Range: NEGATIVE; Abnormal: Above high normal; Status: F Test: SQUAMOUS EPITHELIAL CELL UR AU; Value: 17; Range: 0-6; Units: /HPF; Status: F Test: MUCUS, URINE; Value: SMALL; Range: NEGATIVE; Status: F Test: HYALINE CAST, URINE AUTO; Value: 0; Range: 0-1; Units: /LPF; Status: F Lab Order: Urine Culture; SPEC'M 04/04/16 15:53 Test: URINE CULTURE; Value: <EXTERNAL COMMENT [employer]CWMed> FULL REPORT IN LAB NOTES (eCW and [employer]).; Status: F Test: URINE CULTURE; Value: URINE CULTURE RESULT NO GROWTH CLINICAL SIGNIFICANCE 1 ORGANISM; Status: F Radiology Order: CT ABD & PELVIS: No Contrast Test: CT ABD & PELVIS: No Contrast REASON FOR EXAMINATION: Renal colic; Clinical: Right flank pain.; ; Findings:; Lung bases clear. Visualized heart and pericardium normal.; ; Renal hypodensities suggest small cysts and 2 mm nephrolith in the left kidney; lower pole. Small amount of layering milk of calcium in a left upper pole cyst; is also identified. There is no evidence for perinephric stranding or; hydroureteronephrosis bilaterally.; ; Liver, spleen, pancreas, gallbladder, and bilateral adrenal glands are normal.; The enteric system is without obstruction or acute inflammatory process.; ; Pelvis demonstrates collapsed bladder, bulky myomatous appearance to the uterus; and ovary a centimeter left ovarian cyst likely physiologic. No pelvic fluid or; ascites. No free air. No adenopathy. Abdominal aorta without aneurysm.; Musculoskeletal structures intact.; ; Impression:; 1. Kidneys suggest small bilateral cysts as well as 2 mm nonobstructing left; renal calculus.; 2. Myomatous changes to the uterus and 3 cm left ovarian cyst.; 3. Sigmoid diverticula without acute diverticulitis.; ; ; Signed by; Jann Licona MD 04/04/2016 04:51 P; Outcome: 17:19 Discharge ordered by Provider. ef1 17:31 Discharge Assessment: Patient awake, alert and oriented x 3. No cognitive and/or ld5 functional deficits noted. Patient verbalized understanding of disposition instructions. patient administered narcotics -. 17:32 The following High Risk Discharge criteria are identified: None. Discharged to home ld5 ambulatory, with significant other. Condition: stable. Discharge instructions given to patient, significant other, Instructed on discharge instructions, follow up and referral plans. medication usage, Demonstrated understanding of instructions, medications, Pt was receptive of discharge instructions/ teaching. Prescriptions given X 5. CT Study completed. Property :Personal belongings accompany Pt. 17:33 Patient left the ED. ld5 Signatures: Dispatcher [employer] EDMS Helena Galarza, RN TIFFANY Pruett, Thea, RN RN Carey Mancuso, Reg Reg lg Feepifanio, Joan, PA-C PA-C ef1 Omaira Gallegos RN RN ld5 Ariela Long, MOTOR EXPRESS CLERK MOTOR EXPRESS CLERK ct3 Berenice Gaston RN RN dsf Buddy ThorneRN RN mb9 Marlen Bell, Reg Reg ks16 Ellen, Rosalinda Millard, Yasmeen nb2 Omaira Breaux lr2 Corrections: (The following items were deleted from the chart) 13:17 13:14 Presenting complaint: Patient states: right lower back pain radiating down right dsf leg and right abdomen. pt also reports n/v and a cough dsf Chart Complete MTDD
== END 2016-04-04 17:33 | disposition home or self-care (01) ==
LOC: M ED 13:11
DX: N20.1 Calculus of ureter (principal); N39.0 Urinary tract infection, site not specified; K57.90 Diverticulosis of intestine, part unspecified, without perforation or abscess without bleeding; N83.202 Unspecified ovarian cyst, left side

== ENCOUNTER 2017-04-01 07:42 | Emergency (ER) | payer MEDICAID ==
[2017-04-01] MEDS: PSEUDOEPHEDRINE 30 MG TAB PO (08:10)
[2017-04-01] MEDS: LORazepam 2 MG/ML VIAL (J2060) IV (08:15)
[2017-04-01] MEDS: MECLIZINE 25 MG TABLET PO (08:15)
[2017-04-01] MEDS: NS 1,000 ML IV ×2 (08:15→10:14)
[2017-04-01 08:32] LABS: BASO % 0.1 % (0.0-1.0); EOS # 0.1 10^3/uL (0.0-0.50); HEMOGLOBIN 12.6 g/dl (12.0-16.0); IMMATURE GRANULOCYTE % 0.3 % (0-3.0); LYMPH # 1.5 10^3/uL (1.5-4.5); LYMPH % 21.4 % (24.0-44.0); MEAN CORPUSCULAR HEMOGLOBIN 26.6 pg (27.0-33.0); MEAN CORPUSCULAR HGB CONC 34.1 g/dl (32.0-36.5); MEAN CORPUSCULAR VOLUME 78.1 fl (80.0-96.0); MONO # 0.8 10^3/uL (0.0-0.8); MONO % 11.6 % (0.0-5.0); NEUTROPHILS # 4.6 10^3/uL (1.8-7.7); NEUTROPHILS % 65.6 % (36.0-66.0); PLATELET COUNT, AUTOMATED 261 10^3/uL (150-450); RED BLOOD COUNT 4.74 10^6/uL (4.00-5.40); RED CELL DISTRIBUTION WIDTH 14.3 % (11.5-14.5)
[2017-04-01 08:50] LABS: CONTROL LINE HCG INT CTR LINE PRESENT; HCG, SERUM QUALITATIVE NEGATIVE (NEGATIVE)
[2017-04-01 08:57] LABS: ALBUMIN 3.2 GM/DL (3.2-5.2); ALBUMIN/GLOBULIN RATIO 0.82 (1.00-1.93); ALKALINE PHOSPHATASE 79 U/L (45-117); ALT/SGPT 19 U/L (12-78); ANION GAP 10 MEQ/L (8-16); AST/SGOT 16 U/L (7-37); BILIRUBIN,TOTAL 0.2 MG/DL (0.2-1.0); BLOOD UREA NITROGEN 10 MG/DL (7-18); CALCIUM LEVEL 8.3 MG/DL (8.5-10.1); CARBON DIOXIDE LEVEL 24 MEQ/L (21-32); CHLORIDE LEVEL 104 MEQ/L (98-107); CREATININE FOR GFR 0.42 MG/DL (0.55-1.30); GLOMERULAR FILTRATION RATE > 60.0 (>60); GLUCOSE, FASTING 93 MG/DL (70-100); POTASSIUM SERUM 3.5 MEQ/L (3.5-5.1); SODIUM LEVEL 138 MEQ/L (136-145); TOTAL PROTEIN 7.1 GM/DL (6.4-8.2)
[2017-04-01 09:34] LABS: INFLUENZA A AMPLIFICATION NEGATIVE (NEGATIVE); INFLUENZA B AMPLIFICATION POSITIVE (NEGATIVE)
[2017-04-01] MEDS: OSELTAMIVIR PHOSPHATE 75 MG CAP (TAMIFLU) PO (10:14)
[2017-04-01] MEDS: KETOROLAC 30 MG/ML VIAL (J1885) IV (10:15)
== END 2017-04-01 12:55 | disposition home or self-care (01) ==
LOC: M ED 07:42
DX: J10.2 Influenza due to other identified influenza virus with gastrointestinal manifestations (principal)
CPT/HCPCS: J1885